=== PATIENT | male | born 1965 | race Caucasian/White ===

== ENCOUNTER 2024-11-11 13:57 | Emergency (ER) | payer OTHER, SELFPAY ==
[2024-11-11 13:58] VITALS: BP 153/76; BMI 23.9
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
[2024-11-11] MEDS: TYLENOL 650 MG PO (16:57)
[2024-11-11] MEDS: ADACEL 0.5 ML IM (16:57)
[2024-11-11 17:00] VITALS: BP 150/70
== END 2024-11-11 17:00 | disposition home or self-care (01) ==
LOC: EMR 13:57
PROVIDERS: EMERGENCY PHYSICIAN Student in an Organized Health Care Education/Training Program
DX: S09.90XA Unspecified injury of head, initial encounter (principal); S50.812A Abrasion of left forearm, initial encounter; S70.212A Abrasion, left hip, initial encounter; S00.81XA Abrasion of other part of head, initial encounter; V18.4XXA Pedal cycle driver injured in noncollision transport accident in traffic accident, initial encounter; Y93.55 Activity, bike riding; Z23 Encounter for immunization
CPT/HCPCS: 99284; 90471; 70450; 72125; 90715